=== PATIENT | male | born 1995 | race Caucasian/White ===

== ENCOUNTER 2024-06-12 15:47 | Outpatient (CLI) | payer BC | END 2024-06-12 23:59 | disposition home or self-care (01) | LOC: MRI 15:47 | PROVIDERS: ATTEND Family Medicine Sports Medicine | DX: M25.812 Other specified joint disorders, left shoulder (principal); M85.612 Other cyst of bone, left shoulder; M89.312 Hypertrophy of bone, left shoulder; M77.9 Enthesopathy, unspecified; M25.512 Pain in left shoulder | CPT/HCPCS: 73221 ==